=== PATIENT | male | born 1980 | race African-American/Black ===

== ENCOUNTER 2019-02-17 17:36 | Observation (INO) ==
--- NOTE | 2019-02-17 19:02 | EKG Report ---
Test Performed on : 02/17/2019 5:55:29 PM Test Reason : x 1 week left arm pain Blood Pressure : / mmHG Vent. Rate : 063 BPM Atrial Rate : 063 BPM P-R Int : 156 ms QRS Dur : 110 ms QT Int : 368 ms P-R-T Axes : 028 -34 -30 degrees QTc Int : 376 ms Normal sinus rhythm. Left axis deviation Nonspecific ST abnormality Abnormal ECG No previous ECGs available Unconfirmed Result
[2019-02-17 20:21] LABS: BASO# 0.05 X1000 (0.0-0.2); BASO% 0.8 % (0.0-0.8); EOS# 1.07 X1000 (0.0-0.7); EOS% 16.2 % (0.0-10.0); HEMATOCRIT 45.8 % (42.0-52.0); IMM GRAN# 0.02 X1000 (0.0-0.04); IMM GRAN% 0.3 % (0.0-0.5); LYMPH# 2.36 X1000 (1.2-3.4); LYMPH% 35.7 % (20.5-51.1); MCH 30.6 PG (27-31); MCHC 34.9 g/dL (33-37); MCV 87.6 FL (81-99); MONO# 0.56 X1000 (0.11-0.59); MONO% 8.5 % (1.7-9.3); MPV 9.1 FL (7.4-10.4); NEUT# 2.55 X1000 (1.4-6.5); NEUT% 38.5 % (42.2-75.2); PLT 224 X1000 (130-400); RBC 5.23 XMIL (4.7-6.1); RDW 13.3 % (11.5-14.5); WBC 6.61 X1000 (4.8-10.8)
[2019-02-17 20:51] LABS: AGAP 10; ALBUMIN 4.4 g/dL (3.5-5.0); ALKALINE PHOSPHATASE 87 U/L (32-122); BUN 4 mg/dL (8-22); CHLORIDE 106 mmol/L (98-107); COSMO 281; CREATININE 1.1 mg/dL (0.7-1.2); ESTIMATED GFR > 60; GLUCOSE 76 mg/dL (70-104); GOT 33 U/L (10-34); GPT 30 U/L (10-44); SODIUM 143 mmol/L (136-145); TCO2 26 mmol/L (25-35); TOTAL PROTEIN 7.6 g/dL (6.3-8.3)
[2019-02-17 21:09] LABS: CK INDEX 1.5 (0.0-2.5); CK-MB 6.73 ng/mL (0.0-5.0)
[2019-02-17] MEDS ORDERED: NS 1,000 ML IV ONE (22:20)
--- NOTE | 2019-02-17 23:44 | EKG Report ---
Test Performed on : 02/17/2019 11:26:49 PM Test Reason : CHEST PAIN Blood Pressure : / mmHG Vent. Rate : 057 BPM Atrial Rate : 057 BPM P-R Int : 156 ms QRS Dur : 100 ms QT Int : 378 ms P-R-T Axes : 044 -30 -21 degrees QTc Int : 367 ms Sinus bradycardia. Left axis deviation Abnormal ECG When compared with ECG of 17-FEB-2019 17:55, (Unconfirmed) No significant change was found Unconfirmed Result
--- NOTE | 2019-02-17 23:54 | PROVIDER DOCUMENTATION ---
This chart was entered by Debora Greenberg Scribe, acting as scribe for Oanh Cazares MD. HPI-General Adult - General Chief Complaint: Extremity Pain Stated Complaint: ARM / CHEST PAIN Time Seen by Provider: 02/17/19 19:45 Source: patient Allergies/Adverse Reactions: Patient Allergies Allergy/AdvReac Type Severity Reaction Status Date / Time No Known Allergies Allergy Verified 03/05/16 09:58 - History of Present Illness -Gen Adult Nature of Presenting Problems: pt is a 38 yr old male presenting with 5 day complaint of left arm, neck, shoulder, chest pain, no known injury. pt reports left arm intermittent numbness/tingling. 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 pt has significant family hx of DVTs. pt denies any shortness of breath Location of Pain/Injury: reports: upper extremity Pain Radiation: reports: chest, neck, shoulder(s) (l) Quality of Pain: reports: aching, burning, other (numbess/tingling) Severity: reports: moderate Onset/Duration: reports: 5 days ago Timing: reports: changing over time Context/Activities at Onset: reports: light activity Modifying Factors: improves with: nothing Associated Symptoms: reports: arm pain, back/neck pain, chest pain, joint pain, sensory/motor loss. denies: dizziness, fatigue, fever/chills, headaches, shortness of breath Similar Symptoms Previously?: No Recently seen or treated by another doctor?: No Review of Systems - Adult - REVIEW OF SYSTEMS - ADULT Constitutional: denies: fever, fatique Eyes: denies: blurred vision, double vision Ears, Nose, Mouth & Throat: denies: ear pain, sinus problem, throat pain Cardiovascular: reports: chest pain. denies: palpitations, syncope Respiratory: denies: cough, dyspnea on exertion, shortness of breath Gastrointestinal: denies: abdominal pain, nausea Genitourinary: reports: no symptoms reported Musculoskeletal: reports: joint pain, neck pain. denies: back pain Integumentary: reports: no symptoms reported Neurological: reports: numbness. denies: dizziness/vertigo, headache/migraines, syncope Psychiatric: reports: no symptoms reported Endocrine: reports: no symptoms reported Hematologic/Lymphatic: reports: no symptoms reported Allergic/Immunologic: reports: no symptoms reported All Other Systems: Reviewed and Negative Past History - Adult - PAST MEDICAL HISTORY-ADULT Review of Records: reports: Old Records Reviewed, Nursing Assessment Review, Medications Reviewed, Social history reviewed & non-contributory. Major Childhood Illnesses: reports: denies history Cardiovascular: reports: denies history Respiratory: reports: denies history Gastrointestinal: reports: denies history Obstetrical/Gynecological: reports: denies history Genitourinary: reports: denies history Musculoskeletal: reports: denies history Neurological: reports: denies history Endocrine/Immune: reports: denies history Other Conditions: reports: denies history - IMMUNIZATION STATUS Childhood Immunizations: See Nurse Assessment Flu Vaccine: See Nurse Assessment - FAMILY HISTORY Family History: PE/DVT (reports significant family hx of DVT-father rec ently from multiple DVTs) - SOCIAL HISTORY Smoking: cigarettes Substance Use: alcohol Living Situation: family Physical Exam-General - PHYSICAL EXAM-ADULT Initial Vital Signs Reviewed: Yes - CONSTITUTIONAL General Appearance: appears well, alert, no apparent distress - EYES Eyes: PERRL/EOMI - HEAD, EARS, NOSE, MOUTH & THROAT HENMT: normocephalic/atraumatic, moist mucous membranes, normal ENT inspection - NECK Neck: full range of motion, supple, tender lateral (left) - RESPIRATORY Respiratory: chest non-tender, lungs clear, normal breath sounds - CARDIOVASCULAR Cardiovascular: normal peripheral pulses, regular rate, rhythm - GASTROINTESTINAL (ABDOMEN) Abdominal Exam: normal bowel sounds, non tender, soft - LYMPHATIC Lymphatic: no adenopathy - MUSCULOSKELETAL Back Exam: normal inspection Extremity: normal range of motion, normal capillary refill, tenderness (left anterior shoulder, left bicep) Peripheral Pulses: radial (R): 2+, radial (L): 2+ DTR: bicep (R): 2+, bicep (L): 2+, tricep (R): 2+, tricep (L): 2+ - SKIN Integumentary: normal color, normal turgor, warm/dry - NEUROLOGIC Neurologic: grossly normal, no motor/sensory deficits - PSYCHIATRIC Psych/Mental Status: normal mood/affect Progress - PLAN OF CARE/RESULTS Progress/Plan/Lab Results: Vital Signs - 8 hr 02/17/19 17:45 02/17/19 19:43 Temperature 98.5 F Pulse Rate 73 64 Respiratory Rate 18 16 Blood Pressure 162/109 148/108 O2 Sat by Pulse Oximetry 99 99 Laboratory Results - last 24 hr 02/17/19 20:08 WBC 6.61 RBC 5.23 Hgb 16.0 Hct 45.8 MCV 87.6 MCH 30.6 MCHC 34.9 RDW Std Deviation 13.3 Plt Count 224 MPV 9.1 Immature Gran % (Auto) 0.3 Neut % (Auto) 38.5 L Lymph % (Auto) 35.7 [place] % (Auto) 8.5 Eos % (Auto) 16.2 H Baso % (Auto) 0.8 Immature Gran # (Auto) 0.02 Neut # (Auto) 2.55 Lymph # (Auto) 2.36 [place] # (Auto) 0.56 Eos # (Auto) 1.07 H Baso # (Auto) 0.05 Orders Category Date Time Status CBC WITH ELECTRONIC DIFF [HEME] Stat Lab 02/17/19 20:08 Completed CK PROFILE [SP CHEM] Stat Lab 02/17/19 20:05 Received COMPREHENSIVE METABOLIC PANEL [CHEM] Stat Lab 02/17/19 20:09 Received D-DIMER [COAG] Stat Lab 02/17/19 20:05 Received TROPONIN T Stat Lab 02/17/19 20:05 Received CP/Palp <45 No Known Cardiac Hx Stat Oth 02/17/19 17:51 Ordered EKG [EKG] Stat Ther 02/17/19 17:51 Draft EKG [EKG] Stat Ther 02/17/19 19:56 Ordered Result Diagrams: 02/17/19 20:08 02/17/19 20:08 - EKG 1 Time of EKG reading by physician:: 17:55 EKG Read and Signed by:: Albert Martinez EKG Interpretation (*Must complete 3 of following elements*): Abnormal (non specific st abnormality) Rate: 63 Rhythm: nsr [place]: left QRS: normal PA Interval: normal ST Wave: elevated (EARLY REPOLARIZATION VS ST ELEVATION IN V2, I AND aVL. T INVERSION IN III AND aVF) Prior EKG Comparison: no prior EKG 2 Time of EKG reading by physician:: 23:26 EKG Read and Signed by:: Oanh Cazares EKG Interpretation (*Must complete 3 of following elements*): Abnormal (early repolarization in pwave, twave inversions in III and AVF) Rate: 57 Rhythm: sinus bradycardia [place]: left PA Interval: normal - CONSULTS/PCP/HOSPITALIST Notification #1 *Consult/PCP/Hospitalist*: D/W DR SHEETS Time Discussed: 00:03 Consult Disposition: Admit (OBSERVATION) Departure - Departure Date of Disposition Decision: 02/17/19 Time of Disposition Decision: 00:04 DIAGNOSIS: Left upper arm pain, Chest pain Disposition: ADMITTED INPATIENT 09 Certified Medical Emergency: Emergent Condition: Stable Referrals and Follow-Ups: None,PCP [Primary Care Provider] - Work Excuses: Return to School/Parent Work - Critical Care Note This patient required my direct & personal management of CC.: No Attestation - Physician/ PEDRO Attestation Patient care was provided by Advanced Practice Provider:: No The physician spent face to face time with patient:: Yes Advanced Practice Provider documentation review:: Supervising physician onsite and consulted in the evaluation and care of this patient. The physician did have a face to face encounter with the patient. - HEART Score HEART Score: History: Slightly Suspicious HEART Score: ECG: Non-Specific Repolarization Disturbance/LBBB/PM HEART Score: Age: < or = 45 Years HEART Score: Risk Factors for Atherosclerotic Disease: 1 or 2 Risk Factors HEART Score: Troponin: < or = Normal Limit Total HEART Score:: 2 This chart was documented by the indicated scribe, (Debora Greenberg [employer]) and accurately reflects the services I performed and decisions made by me, Oanh Cazares MD, as attested by the provider's signature.
[2019-02-18 02:10] LABS: CK INDEX 2.4 (0.0-2.5); CK-MB 9.06 ng/mL (0.0-5.0)
[2019-02-18] MEDS ORDERED: NITROGLYCERIN SL PRN (09:05)
[2019-02-18] MEDS ORDERED: SALINE LOCK IV FLUID XX ONE (09:05)
[2019-02-18] MEDS ORDERED: TYLENOL PO PRN (09:05)
[2019-02-18] MEDS ORDERED: ZOFRAN IV PRN (09:05)
[2019-02-18] MEDS ORDERED: NICODERM PATCH TD SCH (09:15)
[2019-02-18] MEDS ORDERED: ASPIRIN PO SCH (09:15)
[2019-02-18] MEDS ORDERED: NORVASC PO SCH (09:15)
[2019-02-18 09:58] LABS: EOS% 10.1 % (0.0-10.0); HEMATOCRIT 46.3 % (42.0-52.0); HEMOGLOBIN 16.2 g/dL (14.0-18.0); LYMPH% 29.9 % (20.5-51.1); MCH 30.9 PG (27-31); MCV 88.4 FL (81-99); MONO% 7.6 % (1.7-9.3); MPV 8.9 FL (7.4-10.4); NEUT% 51.7 % (42.2-75.2); PLT 211 X1000 (130-400); RBC 5.24 XMIL (4.7-6.1); RDW 13.3 % (11.5-14.5)
[2019-02-18 09:59] LABS: BASO# 0.03 X1000 (0.0-0.2); BASO% 0.4 % (0.0-0.8); EOS# 0.72 X1000 (0.0-0.7); IMM GRAN# 0.02 X1000 (0.0-0.04); IMM GRAN% 0.3 % (0.0-0.5); LYMPH# 2.12 X1000 (1.2-3.4); MONO# 0.54 X1000 (0.11-0.59); NEUT# 3.67 X1000 (1.4-6.5)
[2019-02-18 10:10] LABS: AGAP 9; BUN 6 mg/dL (8-22); CALCIUM 8.9 mg/dL (8.8-10.2); CHLORIDE 105 mmol/L (98-107); COSMO 281; CREATININE 1.2 mg/dL (0.7-1.2); ESTIMATED GFR > 60; GLUCOSE 108 mg/dL (70-104); POTASSIUM 4.2 mmol/L (3.5-5.1); SODIUM 142 mmol/L (136-145); TCO2 28 mmol/L (25-35)
[2019-02-18 10:51] LABS: CK-MB 9.55 ng/mL (0.0-5.0)
--- NOTE | 2019-02-18 10:51 | EKG Report ---
Test Performed on : 02/18/2019 10:40:04 AM Test Reason : CP Blood Pressure : / mmHG Vent. Rate : 058 BPM Atrial Rate : 058 BPM P-R Int : 142 ms QRS Dur : 106 ms QT Int : 378 ms P-R-T Axes : 043 -27 -37 degrees QTc Int : 371 ms Sinus bradycardia. Nonspecific ST and T wave abnormality Abnormal ECG When compared with ECG of 17-FEB-2019 23:26, (Unconfirmed) No significant change was found Confirmed by Joe Ramos MD ([id number]) on 02/20/2019 11:26:55 AM
[2019-02-18] MEDS ORDERED: NS 1,000 ML IV SCH (11:00)
[2019-02-18 12:20] VITALS: BP 137/82
--- NOTE | 2019-02-18 13:25 | HISTORY AND PHYSICAL ---
PRIMARY CARE PHYSICIAN: None. CHIEF COMPLAINT: Chest pain and dyspnea. HISTORY OF PRESENT ILLNESS: Mr. Haynes is a 38-year-old male who presented to the ER with complaints of left arm pain and dyspnea. The patient states that he works 3rd shift and he woke up about 5 o'clock p.m. and was having a continuous pain to his left arm. He states his arm had some numbness. He described the pain as sharp. States he had never had any pain like this in the past. Stated the pain kind of travelled down his arm. The patient stated he was a little short of breath with this pain and decided to come to the ER at that time. The patient has a past medical history of a DVT to the left leg in 2017. The patient was on anticoagulants at home for a month or 2 and then he quit taking his medication. The patient denies any shortness of breath at this time. States he does not have any pain at this time, that the pain did subside a few hours after he got to the ER. He denies any dizziness, syncope, vertigo. He denies any nausea or vomiting, fever or chills, cough or congestion. The patient denies any dysuria, constipation, diarrhea. Laboratory Findings show a BUN of 4, creatinine of 1.1. Creatine kinase of 373, CK index of 2.4, CK-MB of 9.06. Troponin 0.045. EKG in the ER shows normal sinus rhythm with left axis deviation, nonspecific ST abnormality. Repeat EKG shows sinus bradycardia with a left axis deviation. D-dimer is 0.27. PAST MEDICAL HISTORY: Is DVT in 2017 to the left leg. PAST SURGICAL HISTORY: None. FAMILY HISTORY: Mother and father both have hypertension. SOCIAL HISTORY: Patient works at [employer]. He smokes a half a pack of cigarettes per day. States he drinks alcohol 3 to 4 beers daily. He denies any drug abuse. ALLERGIES: No known drug allergies. MEDICATIONS: No home medications. LABORATORY DATA AND DIAGNOSTICS: Initial white blood cell count was 6.61, it is now 7.10. Initial red blood cell count was 5.23, now it is 5.24. Hemoglobin initially was 16.09, now is 16.2. Hematocrit was 45.8, now it is 46.3. Platelet count 224,000, now is 211,000. D-dimer is less than 0.27. Sodium initially was 143, now it is 142. Potassium initially was 4.0, now it is 4.2. BUN initially was 4, now is 6. Creatinine initially was 1.1, now it is 1.2. Estimated GFR is greater than 60. Glucose initially was 76, now is 108. Calcium 9. Total bilirubin is 0.0, AST is 33, ALT is 30, alkaline phosphatase is 87. Creatine kinase 373, now it is 319. Creatine kinase index initially was 1.5, then 2.4, now 3.0. CK-MB initially 6.73, 2nd one was 9.6, now it is 9.55. Troponin: Initial troponin was 0.045, 2nd one was 0.045 again, now it is 0.080. Initial EKG showed normal sinus rhythm with a left axis deviation. EKG now shows sinus bradycardia with nonspecific ST and T-wave abnormality. REVIEW OF SYSTEMS: A 12 point review of systems have been obtained and are negative except what is stated above in the HPI. PHYSICAL EXAMINATION: VITAL SIGNS: 98.1 degrees temperature, pulse rate 65, respiratory rate 20, blood pressure is 150/100, O2 saturation 97% on room air. Weight is 180 pounds, height 5 feet 10 inches. GENERAL: This is a 38-year-old male who is lying in the bed. He is in no acute distress. He is well nourished and well developed. HEENT: Atraumatic, normocephalic. Pupils equal, round, reactive to light. Extraocular movements intact. Sclerae is anicteric. Mucous membranes are moist. NECK: Supple. No lymphadenopathy. Trachea is midline. No JVD. No thyromegaly. No bruits. CARDIOVASCULAR: Regular rate and rhythm. No murmurs, gallops, or rubs appreciated. RESPIRATORY: Lung sounds are clear with equal chest excursion. Respirations are nonlabored. No accessory muscle usage. GASTROINTESTINAL: Abdomen is soft, nontender, nondistended. Bowel sounds are present x4. NEUROLOGIC: Cranial nerves 2-12 intact. The patient is awake, alert, oriented, able to follow all commands appropriately. MUSCULOSKELETAL: Full distal strength noted. No abnormalities of gait. No deformities. EXTREMITIES: No clubbing, no cyanosis, no edema. DP and PT pulses are present and palpable. SKIN: Warm, dry, intact. No rashes. No bruises. No diaphoresis. ASSESSMENT AND PLAN: 1. Chest pain. We are going to rule out acute coronary syndrome. We have admitted this patient to the medical floor. We will repeat CK and troponins this afternoon. Do an echocardiogram on this patient. Repeat EKG this afternoon. Place the patient on radiation monitor. We are giving Aspirin 325mg p.o. daily. 2. Hypertension. I will start this patient on low-dose amlodipine 2.5 mg p.o. daily. 3. Nicotine dependency. I placed this patient on nicotine patch daily and provided smoking cessation information. 4. Gastrointestinal prophylaxis. I placed this patient on omeprazole treatment 20 mg p.o. daily. 5. Deep venous thrombosis prophylaxis. Place SCDs on the patient. We have admitted this patient to the medical floor. We are repeating his CK and troponin levels. We are going to repeat EKG. We are going to do an echocardiogram, place him on a healthy heart diet. We started him on IV fluid hydration of normal saline at 75. We have given him Prilosec and SCDs. He can have Zofran and Tylenol as needed. I have ordered him nitroglycerin sublingual p.r.n. for chest pain. All further treatment pending hospital course and labs. Dictated by THIEN Parker for Luther Eaton MD cc: Luther Eaton MD MTDD
--- NOTE | 2019-02-18 15:32 | ECHO REPORT ---
ORDER DATE: 02/18/2019 INTERPRETING PHYSICIAN: Stewart Gonsalez MD. ECHOCARDIOGRAPHIC MEASUREMENTS: 1. Interventricular septum 1.3. 2. Left ventricular posterior wall 1.3. 3. Diastolic diameter 4.8. 4. Left atrium 3.9. 5. Aorta 2.8. FINDINGS: 1. Aortic valve leaflets are trileaflet. 2. Mitral valve was normal. 3. Tricuspid valve was normal. 4. Pulmonic valve was normal. There was mild pulmonary regurgitation. 5. Normal left ventricular cavity size. Mild left ventricular hypertrophy. Estimated ejection fraction of 65%. 6. There is mild mitral regurgitation, mild tricuspid regurgitation. Peak velocity across the tricuspid valve less than 2 m/sec. 7. Peak velocity across the aortic valve less than 2 m/sec. There is no aortic stenosis 8. There is no pericardial effusion or obvious intracardiac mass or thrombus seen. cc: Stewart Gonsalez MD
[2019-02-18 15:41] LABS: CK INDEX 2.7 (0.0-2.5); CK-MB 8.13 ng/mL (0.0-5.0)
--- NOTE | 2019-02-18 18:45 | HISTORY AND PHYSICAL ---
Addendum Report Patient seen and examined by myself. Full note dictated and discussed with nurse practitioner. Patient presented to the hospital with chest pain and left arm, shoulder pain. Notes that it did hurt when he moved his arm, but it was the inside. He states that it felt odd and that is what brought him to the ER. Upon presentation to the ER, he was noted to have blood pressure 162/109. We will admit him the hospital, rule out DC and will follow. We will treat his blood pressure. cc: Luther Eaton MD
--- NOTE | 2019-02-19 05:25 | DISCHARGE SUMMARY ---
ADMISSION DATE: 02/18/2019 DISCHARGE DATE: 02/18/2019 DISCHARGE DIAGNOSES: 1. Chest wall pain, most likely musculoskeletal. Troponin's were all negative. 2. Hypertension. 3. Chronic tobacco abuse. 4. Chronic alcohol use. CONSULTATIONS: None. PROCEDURES: Echo. BRIEF HOSPITAL COURSE: The patient is a 38-year-old male who presented to the ER with chest wall pain. Noted to have an elevated blood pressure at 162/109. He was admitted to the hospital, ruled out for an MT. Thankfully, all his cardiac enzymes were negative. He had an echo, also, which was essentially negative. I do not have final results at time of discharge, but verbal report was okay. He was noted to have elevated blood pressure, was started on lisinopril. On discharge, his blood pressures were much improved to 138/92. His chest pain and arm pain both resolved. His troponin's were negative; therefore, he will be discharged home. DISPOSITION: Discussed with patient again the importance of stopping smoking as well as stopping drinking. He will need to follow up outpatient for stress test. He will need to continue to treat his blood pressure, stop smoking, attempt to eat a healthier heart diet, begin an exercise program. Will follow up outpatient with treatment facility of choice. TIME SPENT: Greater than 30 minutes was spent in total care. cc: Luther Eaton MD
[2019-02-19] MEDS ORDERED: PRILOSEC PO SCH (07:00)
== END 2019-02-18 16:04 | disposition home or self-care (01) ==
LOC: P.ED 17:36 → INTOOBSV 02-18 01:05 → P.MEDSURG 02-18 01:05
PROVIDERS: ATTEND Family Medicine